=== PATIENT | male | born 1975 | race American Indian/Alaskan Native ===

== ENCOUNTER 2017-10-12 11:27 | Emergency (ER) | payer OTHER ==
[2017-10-12 11:34] VITALS: BP 128/74; PULSE 101; RESP 20; TEMP 97.8; O2SAT 100
--- NOTE | 2017-10-12 11:53 | C.PDOC ---
History Of Present Illness 42 y/o male with PMHx of HTN brought to ED by EMS with complaints of chest wall pain starting last night with associated sob today. Patient was given Aspirin prior to arrival by EMS and reports pain is radiating to left upper shoulder. Patient admits to substance and ETOH abuse. Patient is speaking in complete sentences and denies nausea, vomiting, headache, fever, chills or any other complaints at this time. Time Seen by Provider: 10/12/17 11:31 Chief Complaint (Nursing): Chest Pain History Per: Patient History/Exam Limitations: no limitations Onset/Duration Of Symptoms: Days Current Symptoms Are (Timing): Still Present Past Medical History Reviewed: Historical Data, Nursing Documentation, Vital Signs Vital Signs: Last Vital Signs Temp 97.8 F 10/12/17 11:33 Pulse 101 H 10/12/17 11:33 Resp 20 10/12/17 11:33 BP 128/74 10/12/17 11:33 Pulse Ox 100 10/12/17 11:55 - Medical History PMH: HTN, Pneumonia Surgical History: No Surg Hx Family History: States: No Known Family Hx - Social History Hx Alcohol Use: Yes Hx Substance Use: Yes - Immunization History Hx Tetanus Toxoid Vaccination: No Hx Influenza Vaccination: No Hx Pneumococcal Vaccination: No Review Of Systems Constitutional: Negative for: Fever, Chills Cardiovascular: Positive for: Chest Pain Respiratory: Positive for: Shortness of Breath. Negative for: Cough Gastrointestinal: Negative for: Nausea, Vomiting Skin: Negative for: Rash Neurological: Negative for: Weakness, Numbness Physical Exam - Physical Exam Appears: Non-toxic, No Acute Distress Skin: Normal Color, Warm, Dry, No Rash Head: Atraumatic, Normacephalic Oral Mucosa: Moist Neck: Normal ROM, Supple Chest: Symmetrical, Other (Reproducible chest wall pain to palpation) Cardiovascular: Rhythm Regular Respiratory: Normal Breath Sounds, No Rales, No Rhonchi, No Wheezing Gastrointestinal/Abdominal: Soft, No Tenderness, No Guarding, No Rebound Extremity: Normal ROM, Capillary Refill (<2 seconds) Neurological/Psych: Oriented x3, Normal Speech (Speaking in full sentences) ED Course And Treatment - Laboratory Results Result Diagrams: 10/12/17 11:57 10/12/17 11:57 ECG: Interpreted By Me, Viewed By Me ECG Rhythm: Sinus Rhythm ECG Interpretation: Normal Rate From EC (BPM) O2 Sat by Pulse Oximetry: 100 (RA) Pulse Ox Interpretation: Normal Disposition - Disposition Disposition: HOME/ ROUTINE Disposition Time: 15:00 Condition: STABLE Additional Instructions: Patient is medically cleared to return to [facility] in custody of police officers Forms: Accompanied To ED By:, Therosteon (Sammarinese) Print Language: [place] ISLANDER - Clinical Impression Clinical Impression: Chest wall pain - Scribe Statement The provider has reviewed the documentation as recorded by the Hakeemibanthony [place] All medical record entries made by the Hakeemibanthony were at my direction and personally dictated by me. I have reviewed the chart and agree that the record accurately reflects my personal performance of the history, physical exam, medical decision making, and the department course for this patient. I have also personally directed, reviewed, and agree with the discharge instructions and disposition.
[2017-10-12 12:06] LABS: BASO # 0.1 K/uL (0.0-0.2); BASO % 1.3 % (0.0-2.0); EOS # 0.2 K/uL (0.0-0.7); EOS % 2.9 % (0.0-4.0); HEMOGLOBIN 13.8 g/dL (12.0-18.0); LYMPH # 2.3 K/uL (1.0-4.3); LYMPH % 31.5 % (20.0-40.0); MEAN CELL VOLUME 87.4 fL (80.0-94.0); MEAN CORPUSCULAR HEMOGLOBIN 30.1 pg (27.0-31.0); MEAN CORPUSCULAR HGB CONC 34.4 g/dL (33.0-37.0); MEAN PLATELET VOLUME 6.6 fL (7.2-11.7); MONO # 0.7 K/uL (0.0-0.8); MONO % 10.1 % (0.0-10.0); NEUT # 3.9 K/uL (1.8-7.0); NEUT % 54.2 % (50.0-75.0); RBC 4.6 Mil/uL (4.40-5.90); WHITE BLOOD COUNT 7.3 K/uL (4.8-10.8)
--- NOTE | 2017-10-12 12:09 | RAD ---
HISTORY: pain COMPARISON: No prior. FINDINGS: LUNGS: Poor inspiration with low lung volumes, crowded bronchovascular markings and mild tech bibasilar atelectasis PLEURA: No significant pleural effusion identified, no pneumothorax apparent. CARDIOVASCULAR: Normal. OSSEOUS STRUCTURES: No significant abnormalities. VISUALIZED UPPER ABDOMEN: Normal. OTHER FINDINGS: None. IMPRESSION: Poor inspiration with low lung volumes, crowded bronchovascular markings and mild tech bibasilar atelectasis
[2017-10-12 12:17] LABS: ALBUMIN 3.4 g/dL (3.5-5.0); ALT/SGPT 43 U/L (21-72); AST/SGOT 20 U/L (17-59); BLOOD UREA NITROGEN 8 mg/dL (9-20); GFR AFRICAN-AMERICAN > 60; GFR NON-AFRICAN AMERICAN > 60
[2017-10-12 12:18] LABS: ALB/GLOB RATIO 1.3 (1.0-2.1)
--- NOTE | 2017-10-13 12:17 | CARD ---
APPROVED REPORT EKG Measurement Heart [id number] <Conclusion> Normal sinus rhythm Minimal voltage criteria for LVH, may be normal variant ST elevation, probably due to early repolarization Borderline ECG
== END 2017-10-12 13:37 | disposition home or self-care (01) ==
LOC: C.ER 11:27
DX: R07.89 Other chest pain (principal); I10 Essential (primary) hypertension; F17.210 Nicotine dependence, cigarettes, uncomplicated